=== PATIENT | male | born 1990 | race Caucasian/White ===

== ENCOUNTER 2021-09-18 12:58 | Emergency (ER) | payer MEDICAID ==
[~2021-09-18] VITALS: Ht 157.5 cm; Wt 77.1 kg
[2021-09-18 13:12] VITALS: BP 145/71
--- NOTE | 2021-09-18 13:31 | NUR ---
GILDARDO GARBER AT BEDSIDE EVALUATING PT
[2021-09-18] MEDS ORDERED: MORPHINE SULFATE 4 MG/ML SYR IVP ONE (13:35)
[2021-09-18] MEDS ORDERED: ONDANSETRON 4 MG/2 ML VIAL IVP ONE (13:35)
[2021-09-18] MEDS ORDERED: ceFAZolin 1,000 MG VIAL IM ONE (13:35)
[2021-09-18] MEDS ORDERED: WATER STERILE 10 ML MC ONE (14:03)
[2021-09-18 14:10] LABS: BASOPHILS # (AUTO) 0.1 K/uL (0.00-0.22); EOSINOPHILS # (AUTO) 0.2 K/uL (0-0.4); EOSINOPHILS % (AUTO) 3.2 % (0.0-4.0); HEMOGLOBIN 15.1 g/dL (12.0-18.0); LYMPHOCYTES # (AUTO) 2.5 K/uL (2.0-11.5); LYMPHOCYTES % (AUTO) 35.4 % (20.5-51.1); MEAN CORPUSCULAR HEMOGLOBIN 30 pg (27-31); MEAN CORPUSCULAR HGB CONC 34 g/dL (33-37); MEAN CORPUSCULAR VOLUME 87.5 fL (80-94); MONOCYTES # (AUTO) 0.6 K/uL (0.8-1.0); MONOCYTES % (AUTO) 8.4 % (1.7-9.3); NEUTROPHILS # (AUTO) 3.7 K/uL (1.8-7.7); PLATELET COUNT (AUTO) 156 K/uL (140-450); RED BLOOD CELL COUNT(AUTO) 5.03 MIL/uL (4.20-6.10); RED CELL DISTRIBUTION WIDTH 12.9 % (11.6-13.7); WHITE BLOOD COUNT (AUTO) 7.1 K/uL (4.8-10.8)
[2021-09-18] MEDS ORDERED: LIDOCAINE MPF 1% 10 MG/ML VIAL INJ ONE (14:10)
[2021-09-18 14:12] LABS: ANION GAP 8.2 (8-16); CARBON DIOXIDE 32.1 mmol/L (21-32); POTASSIUM 4.3 mmol/L (3.5-5.1)
[2021-09-18] MEDS ORDERED: MORPHINE SULFATE 4 MG/ML SYR IM ONE (14:15)
[2021-09-18] MEDS ORDERED: ONDANSETRON 4 MG ODT PO ONE (14:15)
[2021-09-18] MEDS ORDERED: NEOMYCIN/POLYMYXIN/BACITRACIN 0.9 GM/1 PKT TP ONE (14:30)
--- NOTE | 2021-09-18 15:22 | NUR ---
PER PA ORDER WOUND SITE- LACERATION TO THE LEFT 5TH DIGIT(PINKY) FINGER- WAS IRRIGATED WITH NORMAL SALINE AND BETADINE SOLUTION. WOUND WAS THEN WRAPPED WITH NON-ADHESIVE 4X3 INCH PAD. PER PA ORDER A SHORT FINGER SPLINT WAS APPLIED TO THE WOUND SITE. SPLINT WAS WRAPPED WITH 4 INCH ROLLER GAUZE. +CMS BEFORE AND AFTER APPLICATION OF THE SPLINT. PT DID NOT COMPLAIN OF ANY PAIN OR DISCOMFORT IN CORRELATION TO THE SPLINT AND DRESSING APPLICATION. PA NOTIFIED.
[2021-09-18 15:34] VITALS: BP 145/71
--- NOTE | 2021-09-18 15:34 | NUR ---
Patient discharged with v/s stable. Written and verbal after care instructions given and explained. Patient verbalized understanding. Ambulatory with steady gait. All questions addressed prior to discharge. Advised to follow up with PMD.
--- NOTE | 2021-09-18 15:35 | NUR ---
The patient's care was reviewed and supervised by Joyce Mccabe RN.
== END 2021-09-18 15:34 | disposition home or self-care (01) ==
LOC: MED 12:58
DX: S61.217A Laceration without foreign body of left little finger without damage to nail, initial encounter (principal); X58.XXXA Exposure to other specified factors, initial encounter; Y93.89 Activity, other specified; Y92.89 Other specified places as the place of occurrence of the external cause; Y99.8 Other external cause status
CPT/HCPCS: 12001; 36415; 73140; 80048; 85025; 90471; 90715; 96372; 99284; J0690; J2001; J2270; Q0092; Q0162; J2405

== ENCOUNTER 2021-09-20 10:46 | Emergency (ER) | payer MEDICAID ==
[~2021-09-20] VITALS: Ht 157.5 cm; Wt 76.7 kg
[2021-09-20 11:05] VITALS: BP 125/75
--- NOTE | 2021-09-20 11:23 | NUR ---
DR. MORENO EVALUATING PATIENT IN TRIAGE
--- NOTE | 2021-09-20 11:25 | NUR ---
31/M BIB SELF FOR RECHECK, HAD A LACERATION 2 DAYS AGO ON LEFT PINKY FINGER, REPORTS WAS TOLD TO RETURN TODAY FOR RECHECK. PATIENT DENIES FEVERS OR WORSENING PAIN, STATES 4/10 PAIN WHEN FINGER IS TOUCHED, DENIES ANY OTHER MEDICAL COMPLAINTS AT THIS TIME.
[2021-09-20] MEDS ORDERED: IBUP-1842 PO (11:29)
[2021-09-20 11:45] VITALS: BP 125/75
--- NOTE | 2021-09-20 11:45 | NUR ---
Patient discharged with v/s stable. Written and verbal after care instructions ABOUT WOUND CARE given and explained. Patient alert, oriented and verbalized understanding of instructions. Ambulatory with steady gait. All questions addressed prior to discharge. ID band removed. Patient advised to follow up with PMD. Rx of MOTRIN given. Patient educated on indication of medication including possible reaction and side effects. Opportunity to ask questions provided and answered.
== END 2021-09-20 11:45 | disposition home or self-care (01) ==
LOC: MED 10:46
DX: S61.217D Laceration without foreign body of left little finger without damage to nail, subsequent encounter (principal); Z79.1 Long term (current) use of non-steroidal anti-inflammatories (NSAID); X58.XXXD Exposure to other specified factors, subsequent encounter
CPT/HCPCS: 99282

== ENCOUNTER 2021-09-29 13:41 | Emergency (ER) | payer MEDICAID ==
[~2021-09-29] VITALS: Ht 165.1 cm; Wt 79.8 kg
[~2021-09-29 13:41] MED LIST: IBUP-1842 PO
[2021-09-29 13:50] VITALS: BP 147/70
--- NOTE | 2021-09-29 14:58 | NUR ---
ATTEMPTED TO D/C PT. NOT FOUND IN CHAIR/LOBBY
--- NOTE | 2021-09-29 14:58 | NUR ---
PT LEFT WITOUT D/C PAPERS.
== END 2021-09-29 14:58 | disposition home or self-care (01) ==
LOC: MED 13:41
DX: S61.217D Laceration without foreign body of left little finger without damage to nail, subsequent encounter (principal); Z48.02 Encounter for removal of sutures; R03.0 Elevated blood-pressure reading, without diagnosis of hypertension; X58.XXXD Exposure to other specified factors, subsequent encounter
CPT/HCPCS: 99281